=== PATIENT | male | born 1975 | race Caucasian/White ===

== ENCOUNTER 2016-10-20 09:29 | Emergency (ER) | payer BC ==
[~2016-10-20] VITALS: Ht 180.3 cm; Wt 136.0 kg
[2016-10-20 09:30] VITALS: BP 154/79; PULSE 98; RESP 15; TEMP 98.1; O2SAT 95
[2016-10-20 10:48] LABS: BLOOD, URINE MOD (NEG); GLUCOSE,URINE NEG (NEG); KETONE, URINE NEG (NEG); MUCUS URINE FEW /lpf (OCC); NITRITE,URINE NEG (NEG); PH, URINE 6.5 (5.0-8.5); SQUAMOUS EPITHELIAL CELL URINE 1 /hpf (0-5); URINE COLOR YELLOW (YELLW/STRAW)
[2016-10-20 10:51] LABS: COMMENT (UR) CULT NOT INDICATED; CULTURE IF INDICATED CULT NOT INDICATED
[2016-10-20 11:55] VITALS: O2SAT 100
[2016-10-20] MEDS ORDERED: SODIUM CHLOR 0.9% 1000 ML INJ 1,000 ML IV ONE (12:15)
[2016-10-20] MEDS ORDERED: SODIUM CHLORIDE 0.9% FLUSH 5 ML FLUSH IVF PRN (12:15)
[2016-10-20 13:20] VITALS: BP 146/78; PULSE 87; RESP 16; O2SAT 99
[2016-10-20 13:23] LABS: BICARBONATE 28.3 MEQ/L (21.0-32.0); POTASSIUM 3.7 MEQ/L (3.5-5.1)
[2016-10-20 13:39] LABS: CKMB 2.7 NG/ML (0.5-3.6)
[2016-10-20] MEDS ORDERED: CEPH-460 PO (13:50)
--- NOTE | 2016-10-20 13:50 | PD ---
HPI Chief Complaint: Complaint Time Seen by Provider: 11:45 Travel History International Travel<30 days: No Contact w/Intl Traveler<30days: No Traveled to known affect area: No History of Present Illness HPI Patient is a 40-year-old male presents emergency department with 1 day history of painless hematuria. Patient states he urinated yesterday and had no hematuria. Patient states he's not having a burning on urination painful urination or fever. He states he has a history of low back pain but declines any acute flank pain. Denies any nausea or vomiting. Patient states is never happened to him before. 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 Denies history of kidney stones. PFSH Past Medical History Medical History: Denies Significant Hx Diminished Hearing: No Social History Alcohol Use: No Tobacco Use: No Substance Use: No Allergies-Medications (Allergen,Severity, Reaction): Coded Allergies: No Known Allergies (Unverified , 10/20/16) Reported Meds & Prescriptions Reported Meds & Active Scripts Active Keflex (Cephalexin) 500 Mg Cap 500 Mg PO Q6H 7 Days Review of Systems Except as stated in HPI: all other systems reviewed are Neg Physical Exam Narrative GENERAL: [Well-developed well-nourished no apparent distress SKIN: Warm and dry. HEAD: Atraumatic. Normocephalic. EYES: Pupils equal and round. No scleral icterus. No injection or drainage. ENT: No nasal bleeding or discharge. Mucous membranes pink and moist. NECK: Trachea midline. No JVD. CARDIOVASCULAR: Regular rate and rhythm. No murmur appreciated. RESPIRATORY: No accessory muscle use. Clear to auscultation. Breath sounds equal bilaterally. GASTROINTESTINAL: Abdomen soft, non-tender, nondistended. Hepatic and splenic margins not palpable. No CVA tenderness bilaterally. GENITOURINARY: Normal male genitalia without lesion. Scrotum normal. No rash. MUSCULOSKELETAL: No obvious deformities. No clubbing. No cyanosis. No edema. Patient identifies an area of pain in his low back just to the right of midline approximately level of L5. NEUROLOGICAL: Awake and alert. No obvious cranial nerve deficits. Motor grossly within normal limits. Normal speech. PSYCHIATRIC: Appropriate mood and affect; insight and judgment normal. Data Data Last Documented VS Vital Signs Date Time Temp Pulse Resp B/P Pulse Ox O2 Delivery O2 Flow Rate FiO2 10/20/16 13:20 87 16 146/78 99 Room Air 10/20/16 09:30 98.1 Orders Urinalysis - C+S If Indicated (10/20/16 09:51) Basic Metabolic Panel (Bmp) (10/20/16 12:08) Iv Access Insert/Monitor (10/20/16 12:08) Ecg Monitoring (10/20/16 12:08) Oximetry (10/20/16 12:08) Sodium Chloride 0.9% Flush (Ns Flush) (10/20/16 12:15) Creatine Kinase (Cpk) (10/20/16 12:08) Sodium Chlor 0.9% 1000 Ml Inj (Ns 1000 M (10/20/16 12:15) CKMB (10/20/16 12:35) CKMB% (10/20/16 12:35) Labs Laboratory Tests Test 10/20/16 10/20/16 09:50 12:35 Urine Color YELLOW Urine Turbidity CLEAR Urine pH 6.5 Urine Specific [place] 1.011 Urine Protein NEG mg/dL Urine Glucose (UA) NEG mg/dL Urine Ketones NEG mg/dL Urine Occult Blood MOD Urine Nitrite NEG Urine Bilirubin NEG Urine Urobilinogen LESS THAN 2.0 MG/DL Urine Leukocyte Esterase TRACE Urine RBC /hpf Urine WBC 2 /hpf Urine Squamous Epithelial 1 /hpf Cells Urine Mucus FEW /lpf Microscopic Urinalysis Comment CULT NOT INDICATED Sodium Level 140 MEQ/L Potassium Level 3.7 MEQ/L Chloride Level 104 MEQ/L Carbon Dioxide Level 28.3 MEQ/L Anion Gap 8 MEQ/L Blood Urea Nitrogen 8 MG/DL Creatinine 0.72 MG/DL Estimat Glomerular Filtration 122 ML/MIN Rate Random Glucose 82 MG/DL Calcium Level 8.9 MG/DL Total Creatine Kinase 538 U/L Creatine Kinase MB 2.7 NG/ML Creatine Kinase MB % 0.5 % MDM Medical Decision Making Medical Screen Exam Complete: Yes Emergency Medical Condition: Yes Differential Diagnosis Kidney stone, hematuria, urinary tract infection, bladder cancer is possible though unlikely. Narrative Course Patient was roomed in the emergency department, he appears well and in no pain. He is offered pain medicine and states he wasn't in pain and declined. Patient could possibly have a kidney stone though given his comfortable nature this could pass on its own and the risk of radiation outweighs any potential diagnostic benefit. Discussed with the patient that hematuria could represent a urinary tract infection there is no burning. Discussed need for follow-up with urologist for consideration of a cystoscopy. Patient does have a minimal elevation in CK but his creatinine is normal. He was given fluids in the emergency department. I believe that his CK is at a level that he is stable for discharge at this time. Patient verbalized understanding and agreement with plan. Diagnosis Primary Impression: Hematuria Referrals: Dharmesh Rdz MD Med/Other Pt SpecificInfo: Prescription(s) given Scripts Cephalexin (Keflex)500 Mg Csh176 Mg PO Q6H 7 Days Ref 0 Prov:Connor Dacosta MD 10/20/16 Disposition: 01 DISCHARGE HOME Condition: Stable Connor Dacosta MD Oct 20, 2016 13:50
== END 2016-10-20 14:12 | disposition home or self-care (01) ==
LOC: NEPE 09:29
DX: R31.9 Hematuria, unspecified (principal)
CPT/HCPCS: 80048; 81001; 82550; 82552; 96360; 99283; J7030